=== PATIENT | female | born 1995 ===

== ENCOUNTER → 2023-03-06 | Outpatient (CLI) | payer OTHER | END | disposition home or self-care (01) | LOC: SONOGRAMA 14:52 | PROVIDERS: ATTEND Obstetrics & Gynecology Gynecology | DX: N93.8 Other specified abnormal uterine and vaginal bleeding (principal) ==

== ENCOUNTER 2024-01-23 10:47 | Outpatient (CLI) | payer OTHER | END 2024-01-23 10:54 | disposition home or self-care (01) | LOC: RAD 10:47 | PROVIDERS: ATTEND Podiatrist Foot & Ankle Surgery | DX: M20.12 Hallux valgus (acquired), left foot (principal); M20.11 Hallux valgus (acquired), right foot ==

== ENCOUNTER 2024-12-21 11:26 | Outpatient (CLI) | payer OTHER | END 2024-12-21 11:36 | disposition home or self-care (01) | LOC: RAD 11:26 | PROVIDERS: ATTEND Podiatrist Foot & Ankle Surgery | DX: M20.12 Hallux valgus (acquired), left foot (principal); M20.11 Hallux valgus (acquired), right foot ==